=== PATIENT | male | born 1960 | race Caucasian/White ===

== ENCOUNTER 2020-03-15 10:04 | Outpatient (CLI) | payer MEDICARE, MEDICAID, SELFPAY ==
[2020-03-15 10:42] LABS: Alanine Aminotransferase 39 U/L (4-50); Albumin Level 4.5 g/dL (3.5-5.1); Alkaline Phosphatase 87 U/L (38-126); Aspartate Amino Transferase 35 U/L (17-59); Bilirubin,Total 0.5 mg/dL (0.2-1.3); Blood Urea Nitrogen 13 mg/dL (9-20); Calcium 9.4 mg/dL (8.4-10.2); Carbon Dioxide 27 mmol/L (22-30); Chloride 102 mmol/L (98-107); Cholesterol 112 mg/dL (0-200); Estimated Glomerular Filt Rate > 60; Glucose 160 mg/dL (75-110); HDL Direct 27 mg/dL; Potassium 4.4 mmol/L (3.4-5.0); Sodium 137 mmol/L (137-145); Triglycerides 121 mg/dL (<150)
[2020-03-15 10:53] LABS: LDL Cholesterol Direct 62 mg/dL
[2020-03-15 11:13] LABS: Prostate Specific Antigen 1.6 ng/mL (< OR = 4.0)
== END 2020-03-15 10:05 | disposition home or self-care (01) ==
PROVIDERS: PCP Family Medicine Adolescent Medicine; Visit Provider Family Medicine Adolescent Medicine
DX: Z12.5 Encounter for screening for malignant neoplasm of prostate (principal); E78.2 Mixed hyperlipidemia; I10 Essential (primary) hypertension; E11.9 Type 2 diabetes mellitus without complications
CPT/HCPCS: 36415; 80053; 80061; 83036; 84153; G0103

== ENCOUNTER 2021-07-18 06:47 | Outpatient (CLI) | payer MEDICARE, MEDICAID, SELFPAY ==
[2021-07-18 09:56] LABS: Hemoglobin A1C 6.5 % (<5.7)
[2021-07-18 11:17] LABS: Alanine Aminotransferase 40 U/L (4-50); Albumin Level 4.4 g/dL (3.5-5.1); Alkaline Phosphatase 91 U/L (38-126); Anion Gap 10 mmol/L (8-16); Aspartate Amino Transferase 33 U/L (17-59); Bilirubin,Total 0.6 mg/dL (0.2-1.3); Blood Urea Nitrogen 32 mg/dL (9-20); Calcium 10.2 mg/dL (8.4-10.2); Carbon Dioxide 25 mmol/L (22-30); Chloride 102 mmol/L (98-107); Estimated Glomerular Filt Rate 52; Glucose 162 mg/dL (65-110); Potassium 4.2 mmol/L (3.4-5.0); Sodium 137 mmol/L (137-145)
[2021-07-18 11:45] LABS: Prostate Specific Antigen 1.6 ng/mL (< OR = 4.0)
== END 2021-07-18 06:48 | disposition home or self-care (01) ==
LOC: ANHLAB 06:53
PROVIDERS: PCP Family Medicine Adolescent Medicine; Visit Provider Family Medicine Adolescent Medicine
DX: Z12.5 Encounter for screening for malignant neoplasm of prostate (principal); E11.9 Type 2 diabetes mellitus without complications; I10 Essential (primary) hypertension
CPT/HCPCS: 36415; 80053; 80061; 83036; 84153; G0103

== ENCOUNTER 2022-01-14 11:18 | Emergency (ER) | payer MEDICARE, MEDICAID, SELFPAY ==
--- NOTE | ~2022-01-14 | CT_ITS ---
EXAMINATION: CT lumbar spine wo con DATE: 01/14/2022 12:35 INDICATION: Back pain TECHNIQUE: Computed tomography (CT) of the lumbar spine was performed without intravenous contrast. A utomated exposure control and iterative reconstruction technique were employed. The dose-length produ ct was 1067.04 mGy-cm. COMPARISON: None FINDINGS: 1 mm anterolisthesis L4 on L5. Vertebral body heights are normal. No fracture. Small bone island in t he L3 vertebral body. Negligible disc height loss at L4-L5. Paravertebral soft tissues are unremarkab le. The following disc levels are specifically discussed: T12-L1: Disc is mildly bulging. There is mild bilateral facet joint osteoarthritis. There is no neura l foraminal stenosis. There is no central canal stenosis. L1-L2: Disc is mildly bulging. There is mild bilateral facet joint osteoarthritis. There is no neural foraminal stenosis. There is no central canal stenosis. L2-L3: Disc is mildly bulging. There is mild bilateral facet joint osteoarthritis. There is mild bila teral neural foraminal stenosis. There is no central canal stenosis. L3-L4: Disc is bulging. There is mild bilateral facet joint osteoarthritis. There is mild bilateral n eural foraminal stenosis. There is mild central canal stenosis. L4-L5: Disc is bulging. There is hypertrophy of the ligamentum flavum. There is . Bilateral facet marcello nt osteoarthritis. There is moderate bilateral neural foraminal stenosis. There is moderate to severe central canal stenosis. L5-S1: Small central disc protrusion. There is moderate bilateral facet joint osteoarthritis. There i s minimal left neural foraminal stenosis. There is no central canal stenosis. IMPRESSION: 1. Mild lumbar spondylosis most notable for moderate bilateral neural foraminal stenosis and moderate to severe central canal stenosis at L4-L5. Reviewed, dictated and finalized at location A.
[2022-01-14 11:21] VITALS: BP 172/93; PULSE 73; RESP 16; TEMP 36.6; O2SAT 100
--- NOTE | 2022-01-14 12:56 | ED.BACK ---
HPI - Back Pain/Injury General Chief Complaint: Back Pain/Injury Stated Complaint: back pain Time Seen by Provider: 01/14/22 11:51 Source: RN notes reviewed History of Present Illness HPI Narrative: Patient presents to emergency department from home for back pain. Patient states that 2 days ago he was moving a ladder states that the ladder been stuck in the mud and he went to twist and pull the ladder when he felt an acute twinge in his lower back states that since that time he has had pain in his lower back bilaterally that is worse when he is standing up and turning sideways he states he has no pain when he is sitting down he has no pain with lifting his legs he did states that earlier today pain became severe and shot down both of his legs but denies any numbness or tingling in his legs denies any fevers or chills abdominal pain bowel or bladder incontinence numbness or weakness to the extremities or any other symptoms states that he is chronically on Vicoprofen at home for arthritis Related Data Home Medications Medication Instructions Recorded Confirmed diclofenac sodium 75 mg 75 mg PO BID 10/31/21 01/12/22 tablet,delayed release Allergies Allergy/AdvReac Type Severity Reaction Status Date / Time No Known Allergies Allergy Verified 11/02/21 13:17 Review of Systems Review of Systems: Gen.: Denies fevers or chills ENT: Denies congestion Respiratory: Denies shortness of breath CV: Denies chest pain GI: Denies abdominal pain nausea, emesis or diarrhea denies bowel or bladder incontinence Musculoskeletal: See HPI Neuro: Denies numbness, tingling, weakness or focal weakness Skin: Denies rash Except as documented, all other systems reviewed and negative [facility] Family History Family History (Updated 11/02/21 @ 13:22 by Rosalva Cole MA) Father Diabetes mellitus Osteoarthritis Mother Diabetes mellitus Osteoarthritis Sibling Osteoarthritis Social History Social History (Updated 11/02/21 @ 13:24 by Rosalva Cole MA) Smoking packs per day: 1 Smoking cigarettes per day: 20.0 Years smoked: 30 Smoking pack-years: 30.00 Smoking status: Former smoker Tobacco type: cigarettes and e-cigarettes/vaping Second hand tobacco smoke exposure: No Smoking end date: 08/26/13 Alcohol intake: never Substance use: never Substance use type: does not use Gender identity (if verbalized by the patient): Female Sexual Orientation (if Verbalized by the Patient): Straight or Heterosexual Spiritual care concerns: No Agree to blood products: Yes Course Course Emergency Course: Discussed with patient results of workup and diagnosis. Discussed need for follow-up with primary care, proper use of medication, and reasons to return to the emergency department. Patient understands and agrees to current treatment plan Patient is on Vicoprofen 4 times a day will refrain from any further daily medication such as muscle relaxer and give steroids Vital Signs Vital signs: Vital Signs Temperature 98 F 01/14/22 11:21 Pulse Rate 73 01/14/22 11:21 Respiratory Rate 16 01/14/22 11:21 Blood Pressure 172/93 H 01/14/22 11:21 Pulse Oximetry 100 01/14/22 11:21 Temperature 98 F 01/14/22 11:21 Pulse Rate 73 01/14/22 11:21 Respiratory Rate 16 01/14/22 11:21 Blood Pressure 172/93 H 01/14/22 11:21 Pulse Oximetry 100 01/14/22 11:21 MDM - Back Pain/Injury MDM Narrative Medical decision making narrative: Patient?s pain is positional and localized to back without signs of cord compression or cauda equina. Normal nuerologic exams. No fever noted and no significant risk factors for osteomyelitis or spinal epidural abscess. No symptoms or signs to suggest pain is referred from abdominal or source. There are no pulsatile masses to exam. Patient ambulates with a steady gait and is felt to be up reasonable candidate for continued outpatient management. I discussed with patient bul
[2022-01-14] MEDS: predniSONE 20 MG TABLET 60 MG PO (13:28)
== END 2022-01-14 13:30 | disposition home or self-care (01) ==
PROVIDERS: Emergency Provider Emergency Medicine; PCP Family Medicine Adolescent Medicine
DX: M51.26 Other intervertebral disc displacement, lumbar region (principal); Z87.891 Personal history of nicotine dependence
CPT/HCPCS: 72131; 99284; J7512

== ENCOUNTER 2022-04-12 09:52 | Emergency (ER) | payer MEDICARE, MEDICAID, SELFPAY ==
[2022-04-12 10:01] VITALS: BP 132/80; PULSE 74; RESP 16; TEMP 36.5; O2SAT 99
--- NOTE | 2022-04-12 10:03 | ED.URI ---
HPI - URI/Sore Throat General Chief Complaint: Upper Respiratory Infection Stated Complaint: STUFFY NOSE/FEVER Time Seen by Provider: 04/12/22 10:03 Source: patient and RN notes reviewed History of Present Illness HPI Narrative: Patient is a 61-year-old male who presents the urgent care with his spouse and his son with complaints of fever, stuffy nose and mild sore throat. Patient states that his symptoms started yesterday after his was complaining of a sore throat since Saturday. Patient states he took ibuprofen and is now feeling much better. Denies any ill exposures, nausea, vomiting. No other acute complaints. No acute distress noted. Patient aware of the plan of care. Some parts of this dictation were generated by voice recognition software and may contain typographical and/or grammatical inaccuracies. Related Data Home Medications Medication Instructions Recorded Confirmed diclofenac sodium 75 mg 75 mg PO BID 10/31/21 03/29/22 tablet,delayed release Allergies Allergy/AdvReac Type Severity Reaction Status Date / Time No Known Allergies Allergy Verified 01/23/22 08:59 Review of Systems Review of Systems: CONSTITUTIONAL: Reports a fever EYES: Denies visual changes, redness, or discharge. ENT: Reports of nasal congestion, mild sore throat and postnasal drainage CARDIOVASCULAR: Denies chest pain, palpitations, or edema. RESPIRATORY: Denies cough or dyspnea. GASTROINTESTINAL: Denies abdominal pain, nausea, vomiting, or diarrhea. GENITOURINARY: Denies dysuria or hematuria. SKIN: Denies rash or itching. MUSCULOSKELETAL: Denies back pain, joint pain, or myalgia. NEUROLOGIC: Denies headache, numbness, or weakness. All other systems reviewed are negative, except as documented in HPI. [facility] Family History Family History Father Diabetes mellitus Osteoarthritis Mother Diabetes mellitus Osteoarthritis Sibling Osteoarthritis Social History Social History Smoking packs per day: 1 Smoking cigarettes per day: 20.0 Years smoked: 30 Smoking pack-years: 30.00 Smoking status: Former smoker Tobacco type: cigarettes and e-cigarettes/vaping Second hand tobacco smoke exposure: No Smoking end date: 08/26/13 Alcohol intake: never Substance use: never Substance use type: does not use Gender identity (if verbalized by the patient): Female Sexual Orientation (if Verbalized by the Patient): Straight or Heterosexual Spiritual care concerns: No Agree to blood products: Yes Comments At the time of my signature, I reviewed and agree with the nursing past medical, surgical, social, and family history. There is no relevant family history pertinent to the patient complaint. Exam Narrative: GENERAL: This is a well-nourished, well-developed patient, in no apparent distress. HEAD: normocephalic, atraumatic. EYES: PERRL. Sclera clear/white. Vision is grossly intact. EARS: External ears normal, auditory canals clear and without drainage, TMs normal without perforation. Hearing grossly intact. NOSE: External nose normal with no obvious nasal discharge, nares without redness, no rhinorrhea. THROAT: Mucous membranes moist, posterior pharynx clear. Moderate postnasal drainage NECK: Neck supple, non-tender without lymphadenopathy CARDIOVASCULAR: Regular rate and rhythm without murmurs, gallops, or rubs. RESPIRATORY: Clear to auscultation. Breath sounds equal bilaterally. No wheezes, rales, or rhonchi. SKIN: warm, intact with no suspicious lesions or rash, good texture and turgor. NEURO: awake, alert, and oriented to person, place and time. There were no obvious focal neurologic abnormalities. EXTREMITIES: No clubbing, cyanosis, or edema. Course Course Level of Care: Express Care Visit Vital Signs Vital signs: Vital Signs Temperature 97.7 F 04/12/22 10:01 Pulse Rate 74 04/12/22
[2022-04-12 20:20] LABS: SARS-CoV-2 RNA PCR Positive
== END 2022-04-12 10:51 | disposition home or self-care (01) ==
PROVIDERS: Emergency Provider Nurse Practitioner Family; PCP Family Medicine Adolescent Medicine
DX: U07.1 COVID-19 (principal); Z87.891 Personal history of nicotine dependence; E78.00 Pure hypercholesterolemia, unspecified; I10 Essential (primary) hypertension
CPT/HCPCS: 99211; C9803; G0463; U0003; U0005

== ENCOUNTER 2022-09-27 06:39 | Outpatient (CLI) | payer MEDICARE, MEDICAID, SELFPAY ==
[2022-09-27 08:10] LABS: Hemoglobin A1C 5.9 % (<5.7)
[2022-09-27 08:12] LABS: Alanine Aminotransferase 31 U/L (6-50); Albumin Level 4.1 g/dL (3.5-5.1); Alkaline Phosphatase 67 U/L (38-126); Anion Gap 6 mmol/L (8-16); Aspartate Amino Transferase 27 U/L (17-59); Bilirubin,Total 0.7 mg/dL (0.2-1.3); Blood Urea Nitrogen 27 mg/dL (9-20); Carbon Dioxide 31 mmol/L (22-30); Chloride 100 mmol/L (98-107); Cholesterol 120 mg/dL (0-200); Estimated Glomerular Filt Rate 48; Glucose 138 mg/dL (65-110); HDL Direct 24 mg/dL; Potassium 4.3 mmol/L (3.4-5.0); Sodium 137 mmol/L (137-145); Triglycerides 252 mg/dL (<150)
[2022-09-27 08:22] LABS: LDL Cholesterol Direct 52 mg/dL
[2022-09-27 08:42] LABS: Prostate Specific Antigen 1.7 ng/mL (< OR = 4.0)
== END 2022-09-27 06:40 | disposition home or self-care (01) ==
PROVIDERS: PCP Family Medicine Adolescent Medicine; Visit Provider Family Medicine Adolescent Medicine
DX: Z12.5 Encounter for screening for malignant neoplasm of prostate (principal); N40.0 Benign prostatic hyperplasia without lower urinary tract symptoms; E78.2 Mixed hyperlipidemia; E29.1 Testicular hypofunction; E11.9 Type 2 diabetes mellitus without complications; I10 Essential (primary) hypertension
CPT/HCPCS: 36415; 80053; 80061; 83036; 84153; G0103

== ENCOUNTER 2023-06-03 09:23 | Outpatient (CLI) | payer MEDICARE, MEDICAID, SELFPAY ==
[2023-06-03 11:58] LABS: Cholesterol 149 mg/dL (0-200); HDL Direct 37 mg/dL; Triglycerides 92 mg/dL (<150)
[2023-06-03 12:08] LABS: Hemoglobin A1C 5.5 % (<5.7); LDL Cholesterol Direct 92 mg/dL
== END 2023-06-03 09:24 | disposition home or self-care (01) ==
PROVIDERS: PCP Family Medicine Adolescent Medicine; Visit Provider Family Medicine Adolescent Medicine
DX: E11.9 Type 2 diabetes mellitus without complications (principal); E78.2 Mixed hyperlipidemia
CPT/HCPCS: 36415; 80061; 83036

== ENCOUNTER 2023-10-02 06:46 | Outpatient (CLI) | payer MEDICARE, MEDICAID, SELFPAY ==
[2023-10-02 08:47] LABS: Alanine Aminotransferase 36 U/L (6-50); Albumin Level 4.2 g/dL (3.5-5.1); Alkaline Phosphatase 73 U/L (38-126); Anion Gap 8 mmol/L (8-16); Aspartate Amino Transferase 33 U/L (17-59); Bilirubin,Total 0.4 mg/dL (0.2-1.3); Blood Urea Nitrogen 25 mg/dL (9-20); Calcium 9.2 mg/dL (8.4-10.2); Carbon Dioxide 25 mmol/L (22-30); Chloride 104 mmol/L (98-107); Cholesterol 138 mg/dL (0-200); Estimated Glomerular Filt Rate > 60; Glucose 140 mg/dL (65-110); HDL Direct 35 mg/dL; Potassium 4.2 mmol/L (3.4-5.0); Sodium 137 mmol/L (137-145); Triglycerides 159 mg/dL (<150)
[2023-10-02 08:58] LABS: LDL Cholesterol Direct 88 mg/dL
[2023-10-02 10:18] LABS: Prostate Specific Antigen 1.5 ng/mL (< OR = 4.0)
[2023-10-02 11:05] LABS: Hemoglobin A1C 5.7 % (<5.7)
[2023-10-06 11:36] LABS: Testosterone Total 761 ng/dL (250-1100)
== END 2023-10-02 06:47 | disposition home or self-care (01) ==
LOC: ANHLAB 06:48
PROVIDERS: PCP Family Medicine Adolescent Medicine; Visit Provider Family Medicine Adolescent Medicine
DX: Z12.5 Encounter for screening for malignant neoplasm of prostate (principal); I10 Essential (primary) hypertension; E11.9 Type 2 diabetes mellitus without complications; E78.2 Mixed hyperlipidemia; N40.1 Benign prostatic hyperplasia with lower urinary tract symptoms
CPT/HCPCS: 36415; 80053; 80061; 83036; 84153; 84403; G0103

== ENCOUNTER 2024-10-23 06:41 | Outpatient (CLI) | payer MEDICARE, MEDICAID, SELFPAY ==
[2024-10-23 09:19] LABS: Alanine Aminotransferase 36 U/L (6-50); Albumin Level 4.3 g/dL (3.5-5.1); Alkaline Phosphatase 81 U/L (38-126); Anion Gap 10 mmol/L (4-12); Aspartate Amino Transferase 31 U/L (17-59); Bilirubin,Total 0.5 mg/dL (0.2-1.3); Blood Urea Nitrogen 33 mg/dL (9-20); Calcium 9.4 mg/dL (8.4-10.2); Carbon Dioxide 26 mmol/L (22-30); Chloride 103 mmol/L (98-107); Cholesterol 136 mg/dL (0-200); Estimated Glomerular Filt Rate 57; Glucose 144 mg/dL (65-110); HDL Direct 32 mg/dL; Potassium 4.6 mmol/L (3.4-5.0); Sodium 139 mmol/L (137-145); Triglycerides 96 mg/dL (<150)
[2024-10-23 09:30] LABS: LDL Cholesterol Direct 83 mg/dL
[2024-10-23 09:41] LABS: Prostate Specific Antigen 1.7 ng/mL (< OR = 4.0)
== END 2024-10-23 06:42 | disposition home or self-care (01) ==
PROVIDERS: PCP Family Medicine Adolescent Medicine; Visit Provider Family Medicine Adolescent Medicine
DX: R73.01 Impaired fasting glucose (principal); I10 Essential (primary) hypertension; E29.1 Testicular hypofunction; Z12.5 Encounter for screening for malignant neoplasm of prostate
CPT/HCPCS: 36415; 80053; 80061; 83036; 84153; 84403; G0103

== ENCOUNTER 2025-07-20 14:23 | Emergency (ER) | payer MEDICARE, MEDICAID, SELFPAY ==
[2025-07-20 14:48] VITALS: BP 141/108; PULSE 70; RESP 20; TEMP 36.4; O2SAT 98
--- NOTE | 2025-07-20 17:26 | ED_ITS ---
HPI - Wound/Laceration General Chief Complaint: Wound/Laceration Stated Complaint: R 2ND FINGER LACERATION. Time Seen by Provider: 07/20/25 16:58 History of Present Illness HPI narrative: Patient is a 64-year-old male who presents to the ER with a right 2nd dorsal finger laceration. He reports he was moving a battery when a piece of glass fell on his finger. Patient reports he was able to pull all the glass out of his wound. He denies any decreased range of motion, numbness/tingling in the 2nd digit, or purulent drainage coming from the site. Patient reports he believes his last Tdap was 4 years ago but he is unsure and would like to get vaccinated today. He endorses a history high blood pressure and hyperlipidemia. Related Data Allergies Allergy/AdvReac Type Severity Reaction Status Date / Time No Known Allergies Allergy Verified 07/20/25 14:24 Review of Systems Review of Systems: All systems reviewed & are unremarkable except as noted in HPI and below PMFSH Family History Family History Father Diabetes mellitus Osteoarthritis Mother Diabetes mellitus Osteoarthritis Sibling Osteoarthritis Social History Social History Smoking packs per day: 1 Smoking cigarettes per day: 20.0 Years smoked: 30 Smoking pack-years: 30.00 Smoking status: Former smoker Tobacco type: cigarettes and e-cigarettes/vaping Second hand tobacco smoke exposure: No Smoking end date: 08/26/13 Alcohol intake: never Substance use: never Substance use type: does not use Lack of Transportation: No Lack of Food: Never True Current Housing: I Have Housing Concerned About Future Housing: No Difficulty Paying Gas/Electric Bills: No Difficulty Paying for Meds: No Currently Unemployed: No Education: Associate Degree Difficulty w/ Childcare or Family Care: No Living arrangements: with family Occupation/Education: retired Gender identity (if verbalized by the patient): Female Sexual Orientation (if Verbalized by the Patient): Straight or Heterosexual Spiritual care concerns: No Agree to blood products: Yes Exam Narrative: GENERAL: Well appearing, well-nourished, non-toxic, in no acute distress. HEAD: Normocephalic, atraumatic. NECK: Supple. No adenopathy, no masses. RESPIRATORY: Airway patent, respirations nonlabored. Clear to auscultation bilaterally, no rales, rhonchi, wheezing. CARDIOVASCULAR: Regular rate and rhythm without murmurs, rubs, or gallops. Peripheral pulses 2+ and equal bilaterally. ABDOMINAL: Soft, nontender, nondistended, no hepatosplenomegaly. Normoactive BS. MUSCULOSKELETAL: Moves all extremities. Strength/ROM intact without gross deformities. SKIN: Warm, dry, normal color. No rashes. Right 2nd finger dorsal laceration/skin flap between MCP joint and PIP joint. Bleeding control. NEURO: A&O X3. Speech clear. Cranial nerves II-XII intact. No ataxic movements. PSYCHIATRIC: Appropriate mood and affect. Normal interaction. Course Vital Signs Vital signs: Vital Signs Temperature 36.4 C 07/20/25 14:48 Pulse Rate 70 07/20/25 14:48 Respiratory Rate 20 07/20/25 14:48 Blood Pressure 141/108 H 07/20/25 14:48 Pulse Oximetry 98 07/20/25 14:48 Oxygen Delivery Room Air 07/20/25 14:48 Temperature 36.4 C 07/20/25 14:48 Pulse Rate 70 07/20/25 14:48 Respiratory Rate 20 07/20/25 14:48 Blood Pressure 141/108 H 07/20/25 14:48 Pulse Oximetry 98 07/20/25 14:48 Oxygen Delivery Room Air 07/20/25 14:48 Procedures Laceration Laceration 1: Date: 07/20/25 Time: 17:30 Site: hand Side (If applicable): right Size (cm): 1 Description: flap and clean Depth: simple, single layer Local Anesthetic: none Pre-repair: wound explored and irrigated extensively ====== Skin Level ====== Skin layer closed with: prolene and steri strips ====== Subcutaneous Layer ====== ====== Muscle Layer ====== ====== Tendon Layer ====== MDM - Wound/Laceration MDM Narrative Medical decision making narrative: Patient is a 64-year-old male who presents to the ER with a right 2nd dorsal finger laceration. He reports he was moving a battery when a piece of glass fell on his finger. Patient reports he was able to pull all the glass out of his wound. He denies any decreased range of motion, numbness/tingling in the 2nd digit, or purulent drainage coming from the site. Patient reports he believes his last Tdap was 4 years ago but he is unsure and would like to get vaccinated today. He endorses a history high blood pressure and hyperlipidemia. Patient Education/Shared MDM: Patient's wound was cleaned with normal saline then closed with glue. Three Steri-Strips were placed over the site to help hold it together. No uncontrolled bleeding. Minimal oozing. He declines pain medication administration. Patient strongly advised to follow-up with his PCP in the next 2-3 days to ensure he is healing. He was advised not to get the area wet for at least 24 hours. Patient will be updated with his tetanus vaccine but will be discharged home with no other medications at this time. Strict return precautions provided. Patient verbalized understanding and is in agreement with plan. Vital signs stable at time of discharge. All questions answered. Differential Diagnosis Differential diagnosis: Likely laceration, abrasion and avulsion of skin Discharge Plan Discharge Clinical Impression: Laceration Patient Disposition: Home Condition: Stable Instructions: Antibiotic Form, Skin Adhesive Care (ED), Skin Adhesive Strips (ED) Additional Instructions: Please return to the ER with any worsening symptoms. Follow-up with primary care provider in the next 2-3 days to ensure your wound is healing. Take all medications as prescribed, including regularly scheduled medications. You may use Tylenol as needed for pain control. Please do not get the site wet for at least 24 hours. Patient Language: [place] Irish Prescriptions: No Action triamcinolone acetonide 0.1 % cream 1 applic topical BID Qty: 80 1RF tamsulosin 0.4 mg capsule 0.4 mg PO DAILY Qty: 90 3RF esomeprazole magnesium 40 mg capsule,delayed release(DR/EC) See Rx Instructions .ROUTE .COMPLEX Qty: 90 3RF Dose Instruction: Take 1 capsule by mouth once daily Rx Instructions: Take 1 capsule by mouth once daily rosuvastatin 5 mg tablet See Rx Instructions .ROUTE .COMPLEX Qty: 90 3RF Dose Instruction: Take 1 tablet by mouth once daily Rx Instructions: Take 1 tablet by mouth once daily amlodipine 10 mg tablet See Rx Instructions .ROUTE .COMPLEX Qty: 90 2RF Dose Instruction: Take 1 tablet by mouth once daily Rx Instructions: Take 1 tablet by mouth once daily benazepril 40 mg tablet 40 mg PO DAILY Qty: 90 2RF hydrochlorothiazide 25 mg tablet 25 mg PO DAILY Qty: 90 2RF metoprolol succinate 200 mg tablet extended release 24 hr 200 mg PO DAILY Qty: 90 3RF sildenafil 100 mg tablet See Rx Instructions .ROUTE .COMPLEX Qty: 30 7RF Dose Instruction: TAKE 1 TABLET BY MOUTH ONCE DAILY NEEDED SEXUAL ACTIVITY. ADMINISTER 30 MINUTES TO 4 HOURS BEFORE ACTIVITY Rx Instructions: TAKE 1 TABLET BY MOUTH ONCE DAILY NEEDED SEXUAL ACTIVITY. ADMINISTER 30 MINUTES TO 4 HOURS BEFORE ACTIVITY diclofenac sodium 75 mg tablet,delayed release (DR/EC) See Rx Instructions .ROUTE .COMPLEX Qty: 180 2RF Dose Instruction: Take 1 tablet by mouth twice daily Rx Instructions: Take 1 tablet by mouth twice daily testosterone cypionate [Depo-Testosterone] 200 mg/mL oil 300 mg IM .every 2 weeks Qty: 10 1RF oxycodone-acetaminophen 10-325 mg tablet 1 tablet PO QID PRN (Reason: pain) Qty: 120 0RF Follow-up/Referrals: Curt Calhoun MD [Primary Care Provider, Family Practice] Time of Disposition: 17:35
[2025-07-20] MEDS: TETANUS,DIPHTHERIA,AC PERTUSSIS ADULT (0.5 ML) BOOSTRIX IM (17:45)
[2025-07-20 17:48] VITALS: BP 142/70; PULSE 65; RESP 16; O2SAT 97
== END 2025-07-20 17:51 | disposition home or self-care (01) ==
PROVIDERS: Emergency Provider Registered Nurse; PCP Family Medicine Adolescent Medicine
DX: S61.210A Laceration without foreign body of right index finger without damage to nail, initial encounter (principal); Z87.891 Personal history of nicotine dependence; W25.XXXA Contact with sharp glass, initial encounter; Z23 Encounter for immunization
CPT/HCPCS: 12001; 90471; 90715; 99282